=== PATIENT | male | born 1990 | race Caucasian/White ===

== ENCOUNTER 2019-02-25 17:40 | Emergency (ER) | payer SELFPAY ==
[~2019-02-25] VITALS: Ht 172.7 cm; Wt 100.0 kg
[2019-02-25] MEDS ORDERED: MORPHINE SULFATE 4 MG/ML CPJ (NOT FOR IM USE) IV ONE (18:43)
[2019-02-25] MEDS ORDERED: LIDOCAINE HCL/EPINEPHRINE 1%-EPI 1:100,000 20 ML VIAL ONE (18:44)
[2019-02-25 19:16] LABS: BASOPHILS % 0.3 % (0.0-2.0); EOSINOPHILS % 2.5 % (0.0-5.0); HEMATOCRIT. 42.6 % (42.0-52.0); HEMOGLOBIN. 14.1 g/dL (14.0-18.0); LYMPHOCYTES % 19.3 % (20.0-50.0); MEAN CORPUSCULAR HEMOGLOBIN 30.3 pg (28.0-32.0); MEAN CORPUSCULAR VOLUME 91.2 fL (80.0-94.0); MEAN PLATELET VOLUME 7.7 fl (7.4-10.4); MONOCYTES % 7.5 % (2.0-8.0); NEUTROPHILS % 70.4 % (40.0-76.0); PLATELET 290 x1000/uL (130-400); RED BLOOD CELL COUNT 4.67 mill/uL (4.7-6.1); RED CELL DISTRIBUTION WIDTH 12.7 % (11.6-14.6)
[2019-02-25 19:19] VITALS: BP 115/71
[2019-02-25 19:19] LABS: CHLORIDE 107 mEq/L (98-107)
[2019-02-25 19:20] LABS: PROTHROMBIN TIME 10.2 sec (9.6-11.0)
== END 2019-02-25 20:26 | disposition short-term general hospital (02) ==
LOC: ER 17:50
DX: S91.312A Laceration without foreign body, left foot, initial encounter (principal); I77.2 Rupture of artery; W22.09XA Striking against other stationary object, initial encounter; Y93.89 Activity, other specified; Y92.89 Other specified places as the place of occurrence of the external cause; Y99.8 Other external cause status
CPT/HCPCS: 36415; 80053; 85025; 85610; 86850; 86900; 86901; 99285; J2270; J3490